=== PATIENT | female | born 1985 | race Caucasian/White ===

== ENCOUNTER 2019-03-30 19:11 | Emergency (ER) | payer MEDICAID, OTHER ==
[~2019-03-30] VITALS: Ht 170.2 cm; Wt 111.6 kg
[2019-03-30 20:14] VITALS: BP 150/97
[2019-03-30] MEDS ORDERED: LIDOCAINE 1% HCL (LOCAL ANESTH.) INJ 20ML MDV ONE (20:36)
[2019-03-30] MEDS ORDERED: traMADol HCL 50 MG TAB PO ONE (21:00)
== END 2019-03-30 21:00 | disposition home or self-care (01) ==
LOC: ER 19:11
DX: S63.274A Dislocation of unspecified interphalangeal joint of right ring finger, initial encounter (principal); S63.272A Dislocation of unspecified interphalangeal joint of right middle finger, initial encounter; S62.624A Displaced fracture of middle phalanx of right ring finger, initial encounter for closed fracture; W51.XXXA Accidental striking against or bumped into by another person, initial encounter; Y93.89 Activity, other specified; Y92.89 Other specified places as the place of occurrence of the external cause; Y99.8 Other external cause status
CPT/HCPCS: 26770; 73140; 99284; J2001

== ENCOUNTER 2020-01-15 07:25 | Emergency (ER) | payer MEDICAID ==
[~2020-01-15] VITALS: Ht 170.2 cm; Wt 108.9 kg
[2020-01-15 10:28] VITALS: BP 113/84
== END 2020-01-15 10:29 | disposition home or self-care (01) ==
LOC: ER 07:25
DX: U07.1 COVID-19 (principal); J12.89 Other viral pneumonia; J06.9 Acute upper respiratory infection, unspecified
CPT/HCPCS: 71045

== ENCOUNTER 2020-01-17 07:34 | Emergency (ER) | payer MEDICAID ==
[~2020-01-17] VITALS: Ht 170.2 cm; Wt 108.9 kg
[2020-01-17 07:43] VITALS: BP 117/80
== END 2020-01-17 08:12 | disposition home or self-care (01) ==
LOC: ER 07:34
DX: U07.1 COVID-19 (principal); T78.40XA Allergy, unspecified, initial encounter; J12.89 Other viral pneumonia

== ENCOUNTER 2020-02-10 17:14 | Emergency (ER) | payer MEDICAID ==
[~2020-02-10] VITALS: Ht 170.2 cm; Wt 108.9 kg
[2020-02-10 19:07] LABS: Basophils # (auto) 0.1 10 ^3/uL (0-0.2); Basophils % (auto) 0.9 % (0.0-2.0); Eosinophils # (auto) 0.1 10 ^3/uL (0-0.8); Eosinophils % (auto) 1.3 % (0.0-7.0); Hematocrit 44.1 % (36.0-46.0); Hemoglobin 14.8 g/dL (12.2-16.2); Lymphocytes # (auto) 2.8 10 ^3/uL (0.4-5.4); Lymphocytes % (auto) 39.6 % (10.0-50.0); Mean Corpuscular Hemoglobin 31.5 pg (28.0-32.0); Mean Corpuscular Hgb Conc. 33.5 g/dL (32.0-36.0); Mean Corpuscular Volume 94.3 fL (80.0-100.0); Monocytes # (auto) 0.4 10 ^3/uL (0-1.3); Monocytes % (auto) 5.6 % (0.0-12.0); Neutrophils # (auto) 3.7 10 ^3/uL (1.6-8.6); Neutrophils % (auto) 52.6 % (37.0-80.0); Platelet Count (auto) 238 10^3/uL (140-450); Red Blood Cells 4.68 10^6/uL (4.0-5.20); Red Cell Distribution Width 13.7 % (11.8-14.3); White Blood Cell 7.1 10^3/uL (4.4-10.8)
[2020-02-10 19:12] LABS: Alanine Aminotransferase 48 U/L (13-56); Anion Gap 6 (5-15); Aspartate Aminotransferase 25 U/L (15-37); BUN/Creatinine Ratio 19.6; Blood Urea Nitrogen 18 mg/dL (7-18); Calcium 8.8 mg/dL (8.5-10.1); Carbon Dioxide 25 mmol/L (21-32); Chloride 107 mmol/L (98-107); GFR African American 89 mL/min; GFR Non-African American 74 mL/min; Glucose 86 mg/dL (74-106); Lipase 147 U/L (73-393); Sodium 138 mmol/L (136-145)
[2020-02-10 19:14] LABS: Alkaline Phosphatase 108 U/L (45-117); Bilirubin, Total 0.5 mg/dL (0.2-1.0)
[2020-02-10 21:43] VITALS: BP 124/86
[2020-02-10] MEDS ORDERED: methylPREDNISolone SOD SUCC 125 MG/2 ML VL IM ONE (22:45)
[2020-02-10] MEDS ORDERED: KETOROLAC TROMETH 60MG/2ML VIAL IM ONE (22:45)
[2020-02-10] MEDS ORDERED: cefTRIAXone SOD 1,000 MG VL IM ONE (22:45)
== END 2020-02-10 23:55 | disposition home or self-care (01) ==
LOC: ER 17:14
DX: R35.0 Frequency of micturition (principal)
CPT/HCPCS: 36415; 74176; 80053; 83690; 85025; 96372; 99284; J0696; J1885; J2930

== ENCOUNTER 2020-05-20 13:11 | Emergency (ER) | payer BC, MEDICAID ==
[~2020-05-20] VITALS: Ht 170.2 cm; Wt 113.4 kg
[2020-05-20 13:24] VITALS: BP 123/99
[2020-05-20] MEDS ORDERED: HYDROcodone-ACET 5/325MG TAB PO ONE (15:15)
[2020-05-20] MEDS ORDERED: KETOROLAC TROMETH 60MG/2ML VIAL IM ONE (15:15)
== END 2020-05-20 15:43 | disposition home or self-care (01) ==
LOC: ER 13:11
DX: S39.012A Strain of muscle, fascia and tendon of lower back, initial encounter (principal); M62.830 Muscle spasm of back; E66.01 Morbid (severe) obesity due to excess calories; Z68.39 Body mass index [BMI] 39.0-39.9, adult; X50.1XXA Overexertion from prolonged static or awkward postures, initial encounter; Y93.01 Activity, walking, marching and hiking; Y92.89 Other specified places as the place of occurrence of the external cause; Y99.8 Other external cause status
CPT/HCPCS: 72100; 96372; 99283; J1885

== ENCOUNTER 2022-10-30 10:14 | Emergency (ER) | payer OTHER, MEDICAID ==
[~2022-10-30] VITALS: Ht 170.2 cm; Wt 104.6 kg
[2022-10-30] MEDS ORDERED: DexAMETHasone SOD PHOS 10MG/1ML VIAL INJ IV ONE (11:00)
[2022-10-30] MEDS ORDERED: ALBUTEROL SULF 2.5 MG/0.5ML(0.5%) NEB SOLN HHN ONE (11:00)
[2022-10-30] MEDS ORDERED: IPRATROPIUM BROM 0.5 MG/2.5ML INH SOL HHN ONE (11:00)
[2022-10-30 11:25] LABS: Basophils # (auto) 0 10 ^3/uL (0-0.2); Basophils % (auto) 0.4 % (0.0-2.0); Eosinophils # (auto) 0.2 10 ^3/uL (0-0.8); Eosinophils % (auto) 2.8 % (0.0-7.0); Hematocrit 43.1 % (36.0-46.0); Hemoglobin 14.3 g/dL (12.2-16.2); Lymphocytes # (auto) 2.3 10 ^3/uL (0.4-5.4); Lymphocytes % (auto) 34.2 % (10.0-50.0); Mean Corpuscular Hemoglobin 30.6 pg (28.0-32.0); Mean Corpuscular Hgb Conc. 33.3 g/dL (32.0-36.0); Mean Corpuscular Volume 92.1 fL (80.0-100.0); Monocytes # (auto) 0.5 10 ^3/uL (0-1.3); Monocytes % (auto) 6.7 % (0.0-12.0); Neutrophils # (auto) 3.8 10 ^3/uL (1.6-8.6); Neutrophils % (auto) 55.9 % (37.0-80.0); Red Blood Cells 4.68 10^6/uL (4.0-5.20); Red Cell Distribution Width 13.9 % (11.8-14.3); White Blood Cell 6.8 10^3/uL (4.4-10.8)
[2022-10-30 12:08] LABS: Alanine Aminotransferase 24 U/L (7-40); Albumin 4.4 g/dL (3.2-4.8); Alkaline Phosphatase 78 U/L (46-116); Anion Gap 8.7 (5-15); Aspartate Aminotransferase 13 U/L (13-40); BUN/Creatinine Ratio 15.7 (10.0-20.0); Bilirubin, Total 0.7 mg/dL (0.2-1.0); Blood Urea Nitrogen 14 mg/dL (9-23); Calcium 9.4 mg/dL (8.5-10.1); Carbon Dioxide 22.3 mmol/L (20-30); Chloride 108 mmol/L (98-107); Glucose 80 mg/dL (74-106); Potassium 3.9 mmol/L (3.5-5.1); Sodium 139 mmol/L (136-145); Total Protein 7.2 g/dL (5.7-8.2)
[2022-10-30] MEDS ORDERED: GADOTERATE MEG 10 MMOL/20ml INJ (0.5MMOL/ml) IV ONE (12:29)
[2022-10-30 12:30] LABS: COVID19 ANTIGEN SOFIA FIA NEGATIVE (NEGATIVE)
[2022-10-30] MEDS ORDERED: LEVO500T91 PO (13:26)
[2022-10-30] MEDS ORDERED: METH4PAK PO (13:26)
[2022-10-30 14:20] VITALS: BP 123/85; PULSE 126; RESP 19; TEMP 98.7; O2SAT 95
== END 2022-10-30 14:27 | disposition home or self-care (01) ==
LOC: ER 10:14
DX: J45.909 Unspecified asthma, uncomplicated (principal); F32.9 Major depressive disorder, single episode, unspecified; Z20.822 Contact with and (suspected) exposure to COVID-19
CPT/HCPCS: 36415; 71046; 80053; 85025; 85379; 87426; 94640; 96374; 99284; A9575; J1100; J7644; 94644

== ENCOUNTER 2022-11-15 17:22 | Emergency (ER) | payer OTHER, MEDICAID ==
[~2022-11-15] VITALS: Ht 170.2 cm; Wt 103.7 kg
[~2022-11-15 17:22] MED LIST: LEVO500T91 PO; METH4PAK PO
[2022-11-15] MEDS ORDERED: diphenhdrAMINE HCL 50 MG/1 ML VL IV ONE (18:30)
[2022-11-15] MEDS ORDERED: DexAMETHasone SOD PHOS 10MG/1ML VIAL INJ IV ONE (18:30)
[2022-11-15] MEDS ORDERED: FAMOTIDINE INJECTION 40 MG in SODIUM CHL 0.9% 100 ML IV ONE (18:30)
[2022-11-15] MEDS ORDERED: IPRATROPIUM BROM 0.5 MG/2.5ML INH SOL NEB ONE (18:30)
[2022-11-15] MEDS ORDERED: ALBUTEROL SULF 2.5 MG/0.5ML(0.5%) NEB SOLN NEB ONE (18:30)
[2022-11-15 19:30] VITALS: TEMP 98.8
[2022-11-15 20:39] VITALS: PULSE 95; RESP 15; O2SAT 95
[2022-11-15 21:00] VITALS: BP 119/74; PULSE 102; RESP 20; O2SAT 97
[2022-11-15] MEDS ORDERED: DEX4T PO (21:37)
== END 2022-11-15 22:00 | disposition home or self-care (01) ==
LOC: ER 17:22
DX: T78.40XA Allergy, unspecified, initial encounter (principal); J45.909 Unspecified asthma, uncomplicated; X58.XXXA Exposure to other specified factors, initial encounter
CPT/HCPCS: 94640; 96365; 96366; 96375; 99284; J1100; J1200; J3490; J7644

== ENCOUNTER 2023-12-17 09:26 | Emergency (ER) | payer OTHER, MEDICAID ==
[~2023-12-17] VITALS: Ht 170.2 cm; Wt 115.1 kg
[~2023-12-17 09:26] MED LIST changes: +DEX4T PO
[2023-12-17 10:26] VITALS: BP 115/81; TEMP 98.3
[2023-12-17 10:27] VITALS: PULSE 97; RESP 18; O2SAT 96
[2023-12-17] MEDS: IPRATROPIUM BROM 0.5 MG/2.5ML INH SOL NEB ONE (10:27)
[2023-12-17] MEDS: ALBUTEROL SULF 2.5 MG/0.5ML(0.5%) NEB SOLN NEB ONE (10:28)
[2023-12-17 10:30] VITALS: RESP 16; O2SAT 98
[2023-12-17 10:34] LABS: Urine Bacteria None Seen /hpf (None Seen); Urine WBC None Seen /hpf (0 - 5)
[2023-12-17 10:54] LABS: Urine Blood Negative /uL (Negative); Urine Clarity Turbid (Clear); Urine Color Light-Yellow (Yellow); Urine Protein, UAD Negative (Negative); Urine Specific Gravity 1.025 (1.001-1.035); Urine Urobilinogen Normal (Negative)
[2023-12-17] MEDS ORDERED: PRED1PAK9 PO (11:44)
== END 2023-12-17 12:13 | disposition home or self-care (01) ==
LOC: ER 09:26
DX: S39.012A Strain of muscle, fascia and tendon of lower back, initial encounter (principal); J45.909 Unspecified asthma, uncomplicated; Z79.899 Other long term (current) drug therapy; X58.XXXA Exposure to other specified factors, initial encounter; Y93.89 Activity, other specified; Y92.89 Other specified places as the place of occurrence of the external cause; Y99.8 Other external cause status
CPT/HCPCS: 71045; 81001; 81025; 94640

== ENCOUNTER 2024-03-19 05:29 | Emergency (ER) | payer OTHER, MEDICAID ==
[~2024-03-19] VITALS: Ht 170.2 cm; Wt 113.5 kg
[~2024-03-19 05:29] MED LIST changes: +PRED1PAK9 PO
--- NOTE | 2024-03-19 06:36 | ED.PDOC ---
GI ASSESSMENT HPI Comments 38 year old female presents to the ED with chief complaint of abdominal pain. Patient reports that she has been experiencing epigastric abdominal pain with associated nausea for the past 4-5 hours. Patient relays that on Saturday, her PCP had given her a dose of Zepbound for weight loss. Patient states she is able to urinate well, however, her bowel movements have been irregular. Patient denies any vomiting, fever, chills, dizziness, headache, or diarrhea. Chief Complaint: Abdominal Pain Time Seen by MD: 06:25 Primary Care Provider: DANETTE Reviewed Notes: Nurses Notes, Medications, Allergies Allergies: Coded Allergies: NO KNOWN ALLERGIES (Unverified , 03/30/19) Home Meds Active Scripts Prednisone (Prednisone) 10 Mg Mik, 10 MG PO BID for 5 Days, #10 PACK Prov:JOHN MENJIVAR MD 12/17/23 Dexamethasone (Decadron) 4 Mg Tb, 4 TAB PO DAILY, #8 TAB Prov:MILADY ROSE MD 11/15/22 Methylprednisolone (Medrol Dosepak) 4 Mg Mik, 4 MG PO UD, #21 TAB UAD Prov:WILLIAMS CAGLE MD 10/30/22 Levofloxacin Hemihydrate (LEVAQUIN 500 MG) 500 Mg Tab, 500 MG PO DAILY for 7 Days, #7 TAB Prov:WILLIAMS CAGLE MD 10/30/22 Information Source: Patient Mode of Arrival: Ambulatory Timing: Hours Duration: Since onset Prehospital treatment: None Quality: Sharp Vomitus: None Stool: Impaction Severity: Moderate Recent: None Recent Hx of: None Pain Location: Epigastric Modifying Factors: Nothing Associated sign and symptoms: Nausea, Abdominal Pain Past Medical History PAST MEDICAL HISTORY: Asthma, Depression Surgical History: Denies all surgeries PRODUCT ANALYST History: No Pertinent PRODUCT ANALYST History Family History Family History: Reviewed,noncontributory to illness Social History Smoker: Non-Smoker Alcohol: Denies ETOH Use Drugs: Denies Drug Use Lives In: Home Constitutional: denies: chills, diaphoresis, fatigue, fever, malaise, sweats, weakness, others EENTM: denies: blurred vision, double vision, ear bleeding, ear discharge, ear drainage, ear pain, ear ringing, eye pain, eye redness, hearing loss, mouth pain, mouth swelling, nasal discharge, nose bleeding, nose congestion, nose pain, photophobia, tearing, throat pain, throat swelling, voice changes, others Respiratory: denies: cough, hemoptysis, orthopnea, SOB at rest, shortness of breath, SOB with excertion, stridor, wheezing, others Cardiovascular: denies: chest pain, dizzy spells, diaphoresis, Dyspnea on exert ion, edema, irregular heart beat, left arm pain, lightheadedness, palpitations, PND, syncope, others Gastrointestinal: reports: abdominal pain, nausea; denies: abdomen distended, blood streaked bowels, constipated, diarrhea, dysphagia, difficulty swallowing, hematemesis, melena, poor appetite, poor fluid intake, rectal bleeding, rectal pain, vomiting, others Genitourinary: denies: abnormal vagina bleeding, burning, dyspareunia, dysuria, flank pain, frequency, hematuria, incontinence, pain, , vagina discharge, urgency, others Neurological: denies: dizziness, fainting, headache, left sided numbness, left sided weakness, numbness, paresthesia, pre-existing deficit, right sided numbness, right sided weakness, seizure, speech problems, tingling, tremors, weakness, others Musculoskeletal: denies: back pain, gout, joint pain, joint swelling, muscle pain, muscle stiffness, neck pain, others Integumetry: denies: bruises, change in color, change in hair/nails, dryness, laceration, lesions, lumps, rash, wounds, others Allergic/Immunocompromised: denies: Difficulty Healing, Frequent Infections, Hives, Itching, others Hematologic/Lymphatic: denies: anemia, blood clots, easy bleeding, easy bruising, swollen glands, others Endocrine: denies: excessive hunger, excessive sweating, excessive thirst, excessive urination, flushing, intolerance to cold, intolerance to heat, unexplained weight gain, unexplained weight loss, others Psychiatric: denies: anxiety, bipolar disorder, depression, hopeless, panic disorder, schizophrenia, sleepless, suicidal, others All Other Systems: Reviewed and Negative Physical Exam General Appearance: Moderate Distress, Normal HEENT: Normal ENT Inspection, PERRL/EOMI Neck: Full Range of Motion, Non-Tender, Normal, Normal Inspection Respiratory: Chest Non-Tender, Lungs Clear, No Accessory Muscle Use, No Respiratory Distress, Normal Breath Sounds Cardiovascular: No Edema, No JVD, No Murmur, No Gallop, Normal Peripheral Pulses, Regular Rate/Rhythm Breast Exam: Deferred Gastrointestinal: No Organomegaly, Non Tender, No Pulsatile Mass, Normal Bowel Sounds, Soft Genitalia: Deferred Pelvic: Deferred Rectal: Deferred Extremities: No calf tenderness, Normal capillary refill, Normal inspection, Normal range of motion, Non-tender, No pedal edema Musculoskeletal : Apperance: Normal Neurologic: Alert, studio artist II-XII nml as Tested, No Motor Deficits, Normal Affect, Normal Mood, No Sensory Deficits Cerebellar Function: NOT DONE Reflexes: NOT DONE Skin: Dry, Normal Color, Warm Peripheral Pulses: 3+ Radial (R), 3+ Radial (L) Lymphatic: No Adenopathy Was a procedure done? Was a procedure done?: No GI differential Dx Differential Diagnosis: Constipation, Diverticular disease, Esophagitis, Gastritis/PUD, Gastroenteritis X-Ray, Labs, Meds, VS Vital Signs Date Time Temp Pulse Resp B/P (MAP) Pulse Ox O2 Delivery O2 Flow Rate FiO2 03/19/24 05:37 97.6 71 20 116/74 (88) 99 Lab Test 03/19/24 06:42 Range/Units White Blood Count Pending Red Blood Count Pending Hemoglobin Pending Hematocrit Pending Mean Corpuscular Volume Pending Mean Corpuscular Hemoglobin Pending Mean Corpuscular Hemoglobin Concent Pending Red Cell Distribution Width Pending Platelet Count Pending Mean Platelet Volume Pending Neutrophils (%) (Auto) Pending Lymphocytes (%) (Auto) Pending Monocytes (%) (Auto) Pending Basophils (%) (Auto) Pending Neutrophils # (Auto) Pending Lymphocytes # (Auto) Pending Monocytes # (Auto) Pending Sodium Level Pending Potassium Level Pending Chloride Level Pending Carbon Dioxide Level Pending Anion Gap Pending Blood Urea Nitrogen Pending Creatinine Pending Glomerular Filtration Rate Calc Pending BUN/Creatinine Ratio Pending Serum Glucose Pending Calcium Level Pending Current Medications Medications (Trade) Dose Ordered Sig/Carlos Route Start Time Stop Time Status Last Admin Ondansetron HCl (Zofran) 4 mg ONCE ONCE IV 03/19/24 06:30 03/19/24 06:31 DC 03/19/24 07:04 Sodium Chloride 1,000 ml @ 1,000 mls/hr Q1H ONCE IVB 03/19/24 06:30 03/19/24 07:29 03/19/24 07:12 Patient alert. Complaining of abdominal pain. She is taking weight loss medication. Symptoms started after taking the medication. Vitals stable. Answering all questions. Establish intravenous access. Was given fluids. Was given morphine. Was given Zofran. Explained to patient. Continue cardiac monitoring. Time of 1ST Reevaluation: 07:25 Reevaluation 1ST: Unchanged Patient Education/Counseling: Diagnosis, Treatment Family Education/Counseling: No Family Present Departure 1 Departure Time of Disposition: 07:14 Impression: Primary Impression: Non-specific colitis Disposition: ADMITTED INPATIENT Admit to: Med Surg Condition: Guarded Critical Care Note Critical Care Time?: No Stability Stability form required: No Heart Score Heart Score: Heart Score Response (Comments) Value History N/A 0 EKG N/A 0 Age N/A 0 Risk Factors N/A 0 Troponin N/A 0 Total 0 I personally scribed for NELL GALLEGO MD ([email or web address]) on 03/19/24 at 06:36. Electronically submitted by Oliver Anderson ([email or web address]). NELL GALLEGO MD Mar 19, 2024 06:36
[2024-03-19] MEDS: ONDANSETRON HCL 4 MG/2 ML VIAL IV ONE (07:04)
[2024-03-19] MEDS: SODIUM CHLORIDE 0.9% 1,000 ML IVB ONE (07:12)
[2024-03-19 07:17] LABS: Basophils # (auto) 0 10 ^3/uL (0-0.2); Basophils % (auto) 0.2 % (0.0-2.0); Eosinophils # (auto) 0 10 ^3/uL (0-0.8); Eosinophils % (auto) 0.3 % (0.0-7.0); Hematocrit 44.4 % (36.0-46.0); Hemoglobin 15.1 g/dL (12.2-16.2); Lymphocytes # (auto) 1.3 10 ^3/uL (0.4-5.4); Mean Corpuscular Volume 93.9 fL (80.0-100.0); Monocytes # (auto) 0.4 10 ^3/uL (0-1.3); Monocytes % (auto) 3.2 % (0.0-12.0); Neutrophils # (auto) 10.4 10 ^3/uL (1.6-8.6); Neutrophils % (auto) 85.3 % (37.0-80.0); Platelet Count (auto) 277 10^3/uL (140-450); Red Blood Cells 4.73 10^6/uL (4.0-5.20); Red Cell Distribution Width 13.1 % (11.8-14.3); White Blood Cell 12.2 10^3/uL (4.4-10.8)
[2024-03-19 07:19] LABS: Chloride 106 mmol/L (98-107); Potassium 3.5 mmol/L (3.5-5.1); Sodium 139 mmol/L (136-145)
[2024-03-19 07:20] LABS: Anion Gap 9 (5-15); Calcium 10.3 mg/dL (8.7-10.4); Carbon Dioxide 24 mmol/L (20-31)
[2024-03-19 07:25] LABS: BUN/Creatinine Ratio 13.2 (10.0-20.0); Blood Urea Nitrogen 14 mg/dL (9-23)
[2024-03-19 07:29] LABS: Glucose 121 mg/dL (74-106)
[2024-03-19 07:50] VITALS: BP 110/69; PULSE 61; RESP 18; O2SAT 98
[2024-03-19] MEDS: MORPHINE SULFATE 4 MG/ML SYR/VIAL IV ONE (07:50)
== END 2024-03-19 09:35 | disposition left against medical advice (07) ==
LOC: ER 05:29
DX: K52.9 Noninfective gastroenteritis and colitis, unspecified (principal); J45.909 Unspecified asthma, uncomplicated; F32.A Depression, unspecified; Z79.899 Other long term (current) drug therapy
CPT/HCPCS: 36415; 80048; 85025; 96361; 96374; 96375; 99284; J2270; J2405; J7030